=== PATIENT | female | born 1965 | race Caucasian/White ===

== ENCOUNTER → 2023-08-26 08:16 | Outpatient (REF) | payer BC, SELFPAY | LOC: EMG 08:16 | PROVIDERS: ATTENDING PHYSICIAN Internal Medicine Rheumatology; FAMILY PHYSICIAN Family Medicine | DX: R20.0 Anesthesia of skin (principal) | CPT/HCPCS: 95886; 95911 ==

== ENCOUNTER → 2023-08-29 14:32 | Outpatient (REF) | payer BC, SELFPAY | LOC: HWRAD 14:32 | PROVIDERS: ATTENDING PHYSICIAN Internal Medicine Rheumatology; FAMILY PHYSICIAN Family Medicine; REFERRING PHYSICIAN Family Medicine | DX: M81.0 Age-related osteoporosis without current pathological fracture (principal); Z13.820 Encounter for screening for osteoporosis | CPT/HCPCS: 77080 ==

== ENCOUNTER → 2023-09-11 14:44 | Outpatient (REF) | payer BC, SELFPAY | LOC: HWWDC 14:44 | PROVIDERS: ATTENDING PHYSICIAN Family Medicine; FAMILY PHYSICIAN Family Medicine | DX: Z12.31 Encounter for screening mammogram for malignant neoplasm of breast (principal) | CPT/HCPCS: 77063; 77067 ==

== ENCOUNTER 2023-10-01 15:20 | Emergency (ER) | payer BC, SELFPAY ==
[2023-10-01 15:23] VITALS: BP 160/74
[2023-10-01 15:53] LABS: % Basophils 0.7 % (0-2); % Eosinophils 1.8 % (0-6); % Immature Granulocytes 0.2 % (0-0.5); % Lymphocytes 30.9 % (20.5-51.1); % Neutrophils 56.4 % (42.2-75.2); Absolute Basophils 0.1 10^3/uL (0-0.2); Absolute Eosinophils 0.2 10^3/uL (0-0.7); Absolute Lymphocytes 2.5 10^3/uL (1.2-3.4); Absolute Monocytes 0.8 10^3/uL (0.1-0.6); Absolute Neutrophils 4.6 10^3/uL (1.4-6.5); Hematocrit 39.2 % (37.0-47.0); Hemoglobin 13.4 g/dL (12.0-16.0); Mean Corp Hgb Conc. 34.2 g/dL (33.0-37.0); Mean Corpuscular Hgb 32.5 pg (27.0-31.0); Mean Corpuscular Volume 95.1 fL (81.0-99.0); Mean Platelet Volume 10.8 fL (7.4-10.4); Nucleated Red Blood Cells % 0 %; Platelet Count 291 10^3/uL (130-400); Red Blood Cell Count 4.12 10^6/uL (4.20-5.40); Red Cell Dist. Width 12.8 % (11.5-14.5); White Blood Cell Count 8.2 10^3/uL (4.8-10.8)
[2023-10-01 16:04] LABS: ALT (SGPT) 19 U/L (0-35); AST (SGOT) 32 U/L (14-36); Albumin 4.1 g/dl (3.5-5.0); Alkaline Phosphatase 72 U/L (38-126); Blood Urea Nitrogen 11 mg/dl (7-17); Calcium 9.5 mg/dl (8.4-10.2); Carbon Dioxide 25 mmol/L (22-30); Chloride 105 mmol/L (98-107); Glucose 91 mg/dl (70-99); Potassium 4.1 mmol/L (3.5-5.1); Sodium 135 mmol/L (135-145); Total Bilirubin 0.4 mg/dl (0.2-1.3); Total Protein 6.6 g/dl (6.3-8.2); eGFR > 60.00
[2023-10-01 16:15] LABS: Troponin I < 0.012 ng/ml
[2023-10-01 17:46] VITALS: BP 144/94
--- NOTE | 2023-10-01 17:54 | ED.GENMED ---
History of Present Illness
General
Chief Complaint: Breathing Problem
Source: patient
Exam Limitations: none
Time Seen by Provider: 10/01/23 17:30
Travel History
Have you had any contact with someone who has COVID-19?: No
Do you have any symptoms of coronavirus? Fever > 100 degrees, chills, cough, shortness of breath, sore throat, loss of taste or smell, muscle aches, or headache?: No
History of Present Illness
History of Present Illness:
58-year-old female history of migraines, lupus, GERD, history of smoking 20 to 30 years pack per day but quit 15 years ago presenting with constant shortness of breath and chest pressure worsening over the past 4 to 5 days. Patient denies cough,
fever, chills, lower extremity swelling. Patient states this never happened before. Patient states that chest pressure has been constant all day today. Patient states that she is currently being worked up for MS which makes her nervous and does
not know if it is related to feeling anxious.
Past History
Past History
ED Past Medical History: GERD and Other (Rheumatoid arthritis)
ED Past Surgical History: Gynecological, Orthopedic (Carpal tunnel release bilateral) and Other (TMJ surgery, septoplasty, DJD,, LEEP,)
Social History
Living: with family
Employment: Employed
Phy Exam
Physical Exam
Physical Exam:
General: Alert, no acute distress
Head: NCAT
Eyes: clear conjunctiva
Neck: supple
Cardiac: regular rate and rhythm, no murmur
Lungs: clear to auscultation bilaterally. No wheezes, rales, or rhonchi. Speaking full unlabored sentences. No respiratory distress.
Abdomen: soft, nondistended nontender. No rebound or guarding.
MSK: no lower extremity edema bilaterally. No deformity
Skin: warm, dry
Neuro: Alert and oriented x3. no focal deficits
Scores
Heart Failure Risk
Heart Failure Risk Score: Not Applicable
Course
Orders/Labs/Results
Orders:
Orders
10/01/23 15:27
Electrocardiogram (*1) Urgent
Reason for Study: Chest Pain
EKG- Treatment ONCE
10/01/23 15:35
Complete Blood Count/With Diff Urgent
Comprehensive Metabolic Panel Urgent
Troponin I Urgent
10/01/23 17:54
CXR2 [CR Chest - 2 Views ] Urgent
Comment:
Reason For Exam: sob
Abnormal Lab Results
10/01/23
15:35
RBC 4.12 L 10^6/uL
(4.20-5.40)
MCH 32.5 H pg
(27.0-31.0)
MPV 10.8 H fL
(7.4-10.4)
Absolute Monos (auto) 0.8 H 10^3/uL
(0.1-0.6)
Monocytes % 10.0 H %
(1.7-9.3)
10/01/23 15:35
10/01/23 15:35
Vital Signs
Initial and Last Documented VS:
Initial Vital Signs
Temp Pulse Resp BP Pulse Ox
98.0 F 82 20 160/74 99
10/01/23 15:23 10/01/23 15:23 10/01/23 15:23 10/01/23 15:23 10/01/23 15:23
Last Documented Vital Signs
Temp Pulse Resp BP Pulse Ox
98.0 F 64 22 119/89 95
10/01/23 15:23 10/01/23 18:00 10/01/23 18:00 10/01/23 20:00 10/01/23 20:15
Comment
Comment:
Patient presents to the Emergency Department with chest tightness and shortness of breath
Number and Complexity of Problems Addressed at the Encounter
� Chronic conditions affecting care:
� Acute Exacerbation and/or Progression of Chronic Illness:
� Differential Diagnosis includes: Pneumonia, viral infection, anemia, NSTEMI
Amount and/or Complexity of Data to be Reviewed and Analyzed
� I performed an independent evaluation of and my interpretation is:
EKG: EKG shows normal sinus rhythm at 70 bpm MS 170 QTc [address]
CT:
Xrays: CXR clear with no focal infiltrate or consolidation, no pulmonary edema
Laboratory Studies: Hemoglobin 13.5, WBC 8.2 with no left shift. Electrolytes within normal limits. Troponin within normal limits.
Other:
� Review of other/old records reveals:
� Clinical information was obtained by an independent historian:
� Prescriptions/Medications Considered but not given:
� Further testing considered but not performed: Given onset of symptoms being greater than 3 hours ago with normal troponin, will forego repeat troponin
Risk of Complications and/or Morbidity or Mortality of Patient Management
� Social Determinants of health affecting care:
� Discussion with other providers (PCP, Hospitalists, Consultants, etc):
� Escalation of care including admission/observation vs risk of discharge considered: Workup reviewed with patient. Vitals stable with SpO2 >95% on RA, no acute respiratory distress, speaking full unlabored sentences. Patient reported audible wheeze
last night, but lungs clear with no wheezing in ER. Given significant smoking history, will discharge with albuterol inhaler, PCP follow up
*Critical Care Note
Total Time (30-74mins, 75-104mins- exclusive of procedures): Not Applicable
ED Attending Note
-
Portions of this chart may have been created with voice recognition software.� Occasional wrong word or��sound alike� substitutions may have occurred due to the inherent limitations of voice recognition software.
Discharge Plan
Departure
Patient Disposition: Home (Routine Discharge)
Date of Disposition: 10/01/23
Time of Disposition: 20:17
Patient with high blood pressure during this ER visit?: Yes
Discharge Problem:
Shortness of breath
Instructions: BLOOD PRESSURE
Prescriptions:
New
albuterol sulfate 90 mcg/actuation HFA aerosol inhaler
2 puff inhalation Q6H PRN (Reason: shortness of breath or wheezing) Qty: 8.5 0RF
No Action
sertraline 100 MG tablet
100 mg PO DAILY
temazepam 15 MG capsule
15 mg PO HS
meloxicam 15 MG tablet
15 mg PO HS
methocarbamol 750 MG tablet
750 mg PO Q6 PRN (Reason: pain)
hydroxychloroquine [Plaquenil] 200 MG tablet
200 mg PO DAILY
topiramate [Topamax] 50 MG tablet
50 mg PO TID
varenicline [Chantix Continuing Month Box] 1 MG tablet
1 mg PO BID
cholecalciferol (vitamin D3) 2,000 UNITS tablet
2,000 units PO BID
tofacitinib [Xeljanz XR] 11 MG tablet extended release 24 hr
11 mg PO DAILY
azithromycin 250 MG tablet
500 mg PO DAILY Qty: 7 0RF
amoxicillin-pot clavulanate 1 TABLET tablet
1 tab PO Q12 Qty: 14 0RF
Saccharomyces boulardii 250 MG capsule
250 mg PO BID 0RF
Referrals:
Jorden Lordeo MD [Family Provider] -
Activity Restrictions/Additional Instructions:
Take albuterol inhaler as needed for shortness of breath/wheezing
Follow up with primary care doctor in 1-2 days
Return to the emergency department for fever, cough, or new/worsening symptoms
Interventions
Interventions:
*Risk Screen - Suicide Last Done: 10/01/23 15:23
*General Assessment Last Done: 10/01/23 15:23
*Neglect/Abuse Screening Last Done: 10/01/23 15:23
ED- Fall Risk Assessment Last Done: 10/01/23 17:54
*Nursing Disposition Last Done: 10/01/23 20:38
ED- Cardiac Assessment Last Done: 10/01/23 17:48
ED- Pulmonary Assessment Last Done: 10/01/23 17:48
Discharge Date and Time
Discharge Date/Time: 10/01/23 20:39
Print Language: GUATEMALAN
[2023-10-01 18:00] VITALS: BP 125/58
[2023-10-01 19:20] VITALS: BP 131/90
[2023-10-01 20:00] VITALS: BP 119/89
== END 2023-10-01 20:39 | disposition home or self-care (01) ==
LOC: EMR 15:20
PROVIDERS: Emergency Medicine; EMERGENCY PHYSICIAN Emergency Medicine; FAMILY PHYSICIAN Family Medicine; REFERRING PHYSICIAN Internal Medicine Rheumatology
DX: R06.02 Shortness of breath (principal); R06.2 Wheezing; R07.89 Other chest pain; R03.0 Elevated blood-pressure reading, without diagnosis of hypertension; K21.9 Gastro-esophageal reflux disease without esophagitis; M06.9 Rheumatoid arthritis, unspecified; M32.9 Systemic lupus erythematosus, unspecified; G43.909 Migraine, unspecified, not intractable, without status migrainosus; Z87.891 Personal history of nicotine dependence; Z88.8 Allergy status to other drugs, medicaments and biological substances
CPT/HCPCS: 99283; 71046; 80053; 84484; 85025; 93005